=== PATIENT | male | born 1980 | race Caucasian/White ===

== ENCOUNTER 2017-01-22 15:02 | Emergency (ER) | payer OTHER ==
--- NOTE | ~2017-01-22 | ER ---
PATIENT'S NAME: ANNA RYAN [facility] AGE: 36 Y [address] ROOM: [place] [id number] LOCATION: [facility] ADMIT DATE: 01/22/2017 ER/Outpatient Report DISCHARGE DATE: 01/22/2017 FAMILY PHYSICIAN: PHYSICIAN, NO ATTENDING PHYSICIAN: Juvencio Mcgrath Time of Arrival: 1502 hours. Time of Evaluation: 1510 hours. CHIEF COMPLAINT: Left ankle pain. HISTORY OF PRESENT ILLNESS: The patient is a 36-year-old male who presents to the emergency department today with a chief complaint of left ankle pain. He reports it occurred just prior to arrival, he was getting out of his truck, has stepped in a hole and twisted his left ankle. It is sharp pain, it is worse with movement. No numbness or tingling. Denies any fevers or chills. Pain is currently 2/10 in severity, it is sharp, it is worse with movement. PAST MEDICAL HISTORY: ADD. PAST SURGICAL HISTORY: None. SOCIAL HISTORY: The patient smokes a pack per day. Drinks alcohol occasionally. Denies illicit drug use. ALLERGIES: NO KNOWN DRUG ALLERGIES. MEDICATIONS: Please see list. PRIMARY CARE DOCTOR: RIMA. REVIEW OF SYSTEMS: All systems are reviewed by myself and are negative with the exception of those discussed in HPI and past medical history. PHYSICAL EXAMINATION: VITAL SIGNS: Blood pressure 200/97, pulse 102, respiratory rate 22, PATIENT'S NAME: ANNA RYAN [facility] AGE: 36 Y [address] ROOM: [place] [address] LOCATION: [facility] ADMIT DATE: 01/22/2017 ER/Outpatient Report DISCHARGE DATE: 01/22/2017 FAMILY PHYSICIAN: PHYSICIAN, NO ATTENDING PHYSICIAN: Juvencio Mcgrath temperature 98.0, and oxygen saturation 95% on room air. GENERAL: The patient is a 36-year-old male, appears stated age, in mild acute distress secondary to pain in his left ankle. HEENT: Normocephalic, atraumatic. NECK: Supple. There is no nuchal rigidity. CARDIOVASCULAR: Regular rate and rhythm. No murmurs, rubs, or gallops. LUNGS: Clear to auscultation bilaterally. No wheezes, rales, or rhonchi. MUSCULOSKELETAL: The patient has significant swelling to the lateral aspect of his left ankle. He has tenderness to palpation along the talofibular ligament. He has some mild lateral malleolar pain. There is no medial malleolar pain. There is no proximal fibular pain. SKIN: Warm and dry. There is ecchymosis noted to the left ankle with the swelling noted. LABORATORY DATA AND X-RAYS: Labs and x-rays are obtained. X-rays are interpreted by myself. There is no evidence of fracture or dislocation. IMPRESSION: 1. Acute left ankle sprain of the talofibular ligament. 2. Initial visit. EMERGENCY DEPARTMENT COURSE: The patient was brought back to the examination room. Seen and evaluated by myself. X-rays obtained as described above. I have discussed results of the testing with the patient. I see no evidence of fracture or dislocation. I have asked the patient to follow up with Orthopedics in 7-10 days for re- evaluation if the patient continues to have pain. I have placed the patient in a Cam walking boot. Weightbearing as tolerated. I have written a prescription for Naprosyn for home. The patient is agreeable, he is without further questions at this time. DISPOSITION,: The patient discharged home in good condition. DO SAV LUQUE/modl /[id number] d: 01/22/17 2103 t: 01/25/17 0750, OUTPATIENT REPORT
== END 2017-01-22 15:41 | disposition disaster alternative care site (69) ==
LOC: GACC 15:02
DX: S93.492A Sprain of other ligament of left ankle, initial encounter (principal); F17.210 Nicotine dependence, cigarettes, uncomplicated; Z79.899 Other long term (current) drug therapy; X50.1XXA Overexertion from prolonged static or awkward postures, initial encounter